=== PATIENT | male | born 1970 | race African-American/Black ===

== ENCOUNTER → 2017-06-09 | Outpatient (CLI) | payer BC ==
--- NOTE | 2017-06-09 15:06 | RAD ---
Indication chronic back pain AP oblique and lateral views of the lumbar spine were obtained as well as a coned view targeted to the lumbosacral junction. There is slight anterolisthesis of L4 relative to L3 and L5. Vertebral height is well maintained. Moderate osteophytes are identified at several levels. There are facet degenerative changes most pronounced at L4-5 and L5-S1. An acute bony finding is not seen. Degenerative changes about the hips are noted. IMPRESSION: Spondylitic changes. No acute finding seen
== END | disposition home or self-care (01) ==
LOC: DXRADRC 14:41
PROVIDERS: ATTEND Internal Medicine
DX: M53.3 Sacrococcygeal disorders, not elsewhere classified (principal); M25.552 Pain in left hip; M25.551 Pain in right hip
CPT/HCPCS: 72110

== ENCOUNTER 2017-12-10 11:02 | Emergency (ER) | payer BC ==
[~2017-12-10] VITALS: Ht 177.8 cm; Wt 113.4 kg
[2017-12-10 11:47] LABS: BASO # 0.1 x10^3/uL (0.0-0.2); BASO % 1 % (0-3); EOS # 0.1 x10^3/uL (0.0-0.7); EOS % 1 % (0-3); HEMATOCRIT 45.5 % (39.0-53.0); HEMOGLOBIN 15.6 g/dL (13.0-17.5); LYMPH # 1.5 x10^3/uL (1.0-4.8); LYMPH % 17 % (24-48); MEAN CORPUSCULAR HEMOGLOBIN 32 pg (25-35); MEAN CORPUSCULAR HGB CONC 34 g/dL (31-37); MEAN CORPUSCULAR VOLUME 93 fL (79-100); MONO # 0.7 x10^3/uL (0.0-1.1); MONO % 7 % (0-9); NEUT # 6.6 x10^3uL (1.8-7.7); NEUT % 74 % (31-73); PLATELET COUNT 247 x10^3/uL (140-400); RED BLOOD COUNT 4.88 x10^6/uL (4.30-5.70); RED CELL DISTRIBUTION WIDTH 13.3 % (11.5-14.5); WHITE BLOOD COUNT 8.9 x10^3/uL (4.0-11.0)
[2017-12-10 12:01] LABS: ALBUMIN 3.6 g/dL (3.4-5.0); ALBUMIN/GLOBULIN RATIO 0.9 (1.0-1.7); CALCIUM 9.6 mg/dL (8.5-10.1); CREATININE 0.8 mg/dL (0.7-1.3); GFR 125.9; TOTAL BILIRUBIN 0.7 mg/dL (0.2-1.0); TOTAL PROTEIN 7.8 g/dL (6.4-8.2)
--- NOTE | 2017-12-10 12:03 | PHYS DOC ---
General Chief Complaint: BLOOD IN URINE Stated Complaint: hematuria Time Seen by MD: 11:03 Source: patient Exam Limitations: no limitations Problems: History of Present Illness Initial Comments Patient is a 47-year-old male who comes to the ED complaining of hematuria. Patient states that this morning he was straining to pass a bowel movement and experiences urine change from clear to orange. He states that since that time urination has burned in his past several clots. He's felt bloated with some lower abdominal pressure no actual pain. He denies any rectal pain or foreign bodies, no nausea vomiting or diarrhea no pain with bowel movement. He denies flank pain or history of kidney stones no fever chills sweats or body aches. He was seen by his doctor earlier today and they gave one Cipro, he was advised that he would need a CAT scan they were scheduled for next week but the patient chose to come here instead. On arrival he is afebrile he is anxious blood pressure is 166/100 but he denies symptoms and has no other complaints. Timing/Duration: 4-6 hours Severity: moderate Modifying Factors: improves with other Associated Symptoms: other Allergies: Coded Allergies: No Known Drug Allergies (Unverified , 12/10/17) Past Medical History Medical History: other (arthritis, hypertension) Surgical History: no surgical history Social History Smoker: non-smoker Alcohol: none Drugs: none Review of Systems Constitutional: denies chills, denies diaphoresis, denies malaise Respiratory: denies cough, denies shortness of breath Cardiovascular: denies chest pain, denies palpitations Gastrointestinal: see HPI Genitourinary: see HPI Musculoskeletal: denies back pain, denies joint pain, denies neck pain Psychiatric/Neurological: denies headache, denies numbness, denies paresthesia Hematologic/Lymphatic: denies blood clots, denies easy bleeding, denies easy bruising Physical Exam General Appearance: mild distress (anxious), obese Eyes: bilateral eye normal inspection, bilateral eye PERRL, bilateral eye EOMI Ear, Nose, Throat: hearing grossly normal, normal ENT inspection, normal pharynx Neck: non-tender, supple Respiratory: normal breath sounds, no respiratory distress Cardiovascular: normal peripheral pulses, regular rate, rhythm Gastrointestinal: soft (mildly distended, no focal tenderness bowel sounds are normal no masses palpated) Rectal: deferred Back: no CVA tenderness, no vertebral tenderness Extremities: normal range of motion, non-tender 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 I check with radiology and it had not been sent to the radiologist electronically. I requested that they do so now, patient has prolonged ED course due to radiology delay. PATIENT: GENEVIEVE DOAN ACCOUNT: [id number] : 1970 LOCATION: ER AGE: 47 SEX: M EXAM STATUS: REG ER ORD. PHYSICIAN: ARIANE MANDEL DO REASON: gross hematuria, abd distension, low abd pain PROCEDURE: CT ABDOMEN PELVIS WO CONTRAST Indication: Gross hematuria, passing clots beginning this morning. Abdominal distention and lower abdominal pain. Technique: Axial images and coronal and sagittal reformatted images are provided. No comparison is available. One or more of the following individualized dose reduction techniques were utilized for this examination: 1. Automated exposure control 2. Adjustment of the mA and/or kV according to patient size 3. Use of iterative reconstruction technique Findings: There is atelectasis in the lung bases. There is no pleural effusion. The heart is not enlarged. Solid organ evaluation is limited without contrast. There is fatty infiltration of the liver. Gallbladder is unremarkable. Spleen is not enlarged. Pancreas and right adrenal are unremarkable. There is a left adrenal nodule measuring 6 Hounsfield units and 14 x 10 mm, compatible with adenoma. There is stranding of the perinephric fat bilaterally. There is no obstructing or nonobstructing calculus. Neither ureter is dilated. Aorta is normal caliber. Lack of IV or oral contrast limits evaluation of bowel. There is no dilated small bowel loop or air-fluid level. There is a normal appendix. There are a few diverticula in the colon. There are no findings of a diverticulitis. There is no bladder calculus. There is stranding of the perivesical fat inferiorly. This extends adjacent to the prostate as well. Prostate does not appear enlarged. Prostate calcification is noted. There are degenerative changes in the spine, mild. IMPRESSION: 1. No obstructing or nonobstructing renal calculus. 2. Stranding of the perivesical fat and periprostatic fat. Correlate with any concern for cystitis or prostatitis. 3. A few diverticula in the colon but no findings of a diverticulitis. 4. Fatty infiltration of the liver. Electronically signed by: Jose Lopes MD (12/10/2017 1:18 PM) [id number] DICTATED AND SIGNED BY: JOSE LOPES MD DATE: 12/10/17 1310 CC: LUIS FELIPE NOLASCO DO; ARIANE MANDEL DO ~ Pertinent labs: Potassium 3.0 (40 mEq given by mouth), BUN 18, creatinine 0.8 UA: 5-10 WBCs, RBCs too numerous to count, positive nitrites, large blood 1348: Patient rechecked, he states that he just returned from the restroom and that his urine is now clear. Impressions: Gross hematuria Cystitis Hypokalemia Dehydration Patient feels like he is doing much better and wanting to go home. I discussed signs and symptoms to monitor for as well as indications for urgent return to the department. I discussed [id number] prescription medications as well as activity restriction and oral hydration. Discussed close PCP follow-up and the departure instructions, his questions were answered expressed agreement and understanding with treatment plan. Departure Time of Disposition: 13:45 Disposition: 01 HOME, SELF-CARE Diagnosis: cystitis, hematuria, hypokalemia, hypovolemia Condition: IMPROVED Patient Instructions: Hematuria, Adult, Hypokalemia-Brief, Urinary Tract Infection, Child Additional Instructions: Please review the patient education materials given by ED staff. Rest, no work until cleared by your doctor. Aggressive hydration with Gatorade and water. [id number] Tylenol as needed. Prescription: Bactrim DS, Pyridium, potassium chloride 10 mEq Follow-up with your doctor on Wednesday for recheck of potassium and symptoms and to discuss outpatient urology referral for cystoscopy. Return to ED with new or changing symptoms. ARIANE MANDEL DO Dec 10, 2017 12:03
[2017-12-10 12:11] LABS: BILIRUBIN,URINE NEG (NEG); CLARITY,URINE BLOODY; COLOR,URINE RED; GLUCOSE,URINE 100 mg/dL (NEG)
[2017-12-10 12:12] LABS: BACTERIA,URINE 0 /HPF (0-FEW); NITRITE,URINE POS (NEG); RBC,URINE TNTC /HPF (0-2); SQUAMOUS EPITHELIAL CELL,UR OCC /LPF; UROBILINOGEN,URINE 1 mg/dL (0.2 mg/dL)
[2017-12-10] MEDS ORDERED: IV NORMAL SALINE 1,000ML 500 ML IV SCH (12:16)
[2017-12-10] MEDS ORDERED: cefTRIAXone IV Push 1 GM VIAL. IVP ONE (12:45)
--- NOTE | 2017-12-10 13:22 | RAD ---
Indication: Gross hematuria, passing clots beginning this morning. Abdominal distention and lower abdominal pain. Technique: Axial images and coronal and sagittal reformatted images are provided. No comparison is available. One or more of the following individualized dose reduction techniques were utilized for this examination: 1. Automated exposure control 2. Adjustment of the mA and/or kV according to patient size 3. Use of iterative reconstruction technique Findings: There is atelectasis in the lung bases. There is no pleural effusion. The heart is not enlarged. Solid organ evaluation is limited without contrast. There is fatty infiltration of the liver. Gallbladder is unremarkable. Spleen is not enlarged. Pancreas and right adrenal are unremarkable. There is a left adrenal nodule measuring 6 Hounsfield units and 14 x 10 mm, compatible with adenoma. There is stranding of the perinephric fat bilaterally. There is no obstructing or nonobstructing calculus. Neither ureter is dilated. Aorta is normal caliber. Lack of IV or oral contrast limits evaluation of bowel. There is no dilated small bowel loop or air-fluid level. There is a normal appendix. There are a few diverticula in the colon. There are no findings of a diverticulitis. There is no bladder calculus. There is stranding of the perivesical fat inferiorly. This extends adjacent to the prostate as well. Prostate does not appear enlarged. Prostate calcification is noted. There are degenerative changes in the spine, mild. IMPRESSION: 1. No obstructing or nonobstructing renal calculus. 2. Stranding of the perivesical fat and periprostatic fat. Correlate with any concern for cystitis or prostatitis. 3. A few diverticula in the colon but no findings of a diverticulitis. 4. Fatty infiltration of the liver. Electronically signed by: Jose Lopes MD (12/10/2017 1:18 PM) [id number]
[2017-12-10] MEDS ORDERED: POTA10CA PO (13:45)
[2017-12-10] MEDS ORDERED: SULF1TAB24 PO (13:45)
[2017-12-10] MEDS ORDERED: POTASSIUM CHLORIDE 20 MEQ TABLET.ER. PO ONE (13:45)
[2017-12-10] MEDS ORDERED: PHEN100T82 PO (13:45)
[2017-12-10] MEDS ORDERED: PHENAZOPYRIDINE 100 MG TABLET. PO ONE (14:00)
[2017-12-10 14:04] VITALS: BP 165/113
== END 2017-12-10 14:05 | disposition home or self-care (01) ==
LOC: ER 11:02
DX: N30.91 Cystitis, unspecified with hematuria (principal); E87.6 Hypokalemia; E86.1 Hypovolemia; E86.0 Dehydration; I10 Essential (primary) hypertension
CPT/HCPCS: 36415; 74176; 80053; 81001; 83690; 85025; 87086; 96361; 96374; 99285; G0480; J0696; J7030